=== PATIENT | female | born 1990 | race Caucasian/White ===

== ENCOUNTER 2017-08-18 22:19 | Emergency (ER) | payer MEDICAID, OTHER | END 2017-08-19 04:53 | disposition home or self-care (01) | LOC: FTE 22:19 | DX: S99.911A Unspecified injury of right ankle, initial encounter (principal); X58.XXXA Exposure to other specified factors, initial encounter; Y92.9 Unspecified place or not applicable | CPT/HCPCS: 73610; 73610-RT; 99283-25 ==